=== PATIENT | male | born 1970 | race American Indian/Alaskan Native ===

== ENCOUNTER 2022-03-07 15:10 | Emergency (ER) | payer OTHER ==
--- NOTE | 2022-03-07 15:22 | Emergency Department Report ---
ED General Adult HPI - General Chief complaint: Skin Rash Stated complaint: MULTIPLE BLISTERS Time Seen by Provider: 03/07/22 15:17 Source: patient Mode of arrival: Ambulatory Limitations: No Limitations - History of Present Illness Initial comments: Patient 51-year-old male who presents for vesicular rash to bilateral arms and legs x3 days. He denies history of HSV, asthma eczema or contact dermatitis. Patient states spontaneous eruption primary symptoms are itching and burning 5/10. There is no shortness of breath no dizziness no patient states vesicles are open and draining clear drainage lightheadedness no chest pain no nausea vomiting no fever or chills. Symptoms are exacerbated by itching. Symptoms are relieved by itching. - Related Data Previous Rx's Medication Instructions Recorded Last Taken Type Mupirocin [Bactroban 2% OINT] 1 applic TP TID #1 tube 03/07/22 Unknown Rx Valacyclovir HCl [Valtrex] 1,000 mg PO BID 7 Days #14 tab 03/07/22 Unknown Rx diphenhydrAMINE [Benadryl CAP] 25 mg PO Q8HR PRN #30 capsule 03/07/22 Unknown Rx predniSONE [Deltasone] 40 mg PO QDAY 5 Days #10 tab 03/07/22 Unknown Rx ED Review of Systems ROS: Stated complaint: MULTIPLE BLISTERS Other details as noted in HPI Constitutional: denies: chills, fever Eyes: denies: eye pain, eye discharge, vision change ENT: denies: ear pain, throat pain Respiratory: denies: cough, shortness of breath, wheezing Cardiovascular: denies: chest pain, palpitations Endocrine: no symptoms reported Gastrointestinal: denies: abdominal pain, nausea, diarrhea Genitourinary: denies: urgency, dysuria Musculoskeletal: denies: back pain, joint swelling, arthralgia Skin: denies: rash, lesions Neurological: denies: headache, weakness, paresthesias Psychiatric: denies: anxiety, depression Hematological/Lymphatic: denies: easy bleeding, easy bruising ED Past Medical Hx - Medications Home Medications: Home Medications Medication Instructions Recorded Confirmed Last Taken Type Mupirocin [Bactroban 2% OINT] 1 applic TP TID #1 tube 03/07/22 Unknown Rx Valacyclovir HCl [Valtrex] 1,000 mg PO BID 7 Days #14 tab 03/07/22 Unknown Rx diphenhydrAMINE [Benadryl CAP] 25 mg PO Q8HR PRN #30 capsule 03/07/22 Unknown Rx predniSONE [Deltasone] 40 mg PO QDAY 5 Days #10 tab 03/07/22 Unknown Rx ED Physical Exam - General Limitations: No Limitations General appearance: alert, in no apparent distress - Head Head exam: Present: normocephalic, normal inspection - Eye Eye exam: Present: EOMI Pupils: Present: normal accommodation - ENT ENT exam: Present: mucous membranes moist - Neck Neck exam: Present: normal inspection, full ROM. Absent: tenderness - Respiratory Respiratory exam: Present: normal lung sounds bilaterally. Absent: respiratory distress, wheezes, stridor - Cardiovascular Cardiovascular Exam: Present: regular rate, normal rhythm, normal heart sounds. Absent: systolic murmur, diastolic murmur, rubs, gallop - GI/Abdominal GI/Abdominal exam: Present: soft, normal bowel sounds. Absent: distended, tenderness - Rectal Rectal exam: Present: deferred - Extremities Exam Extremities exam: Present: normal inspection, full ROM, normal capillary refill, other (rash bilat arm leg ) - Back Exam Back exam: Present: normal inspection, full ROM - Neurological Exam Neurological exam: Present: alert, oriented X3 - Psychiatric Psychiatric exam: Present: normal affect, normal mood - Skin Skin exam: Present: warm, rash (Circular bilateral arms and legs clear weeping lower extremities mild erythema) ED Medical Decision Making - Medical Decision Making Plan DC to home with prescriptions., Follow-up with health department given in department without health information packet. Return to emergency department should symptoms worsen. There are no fevers no chills no shortness of breath no cough no wheezing. Rash is likely complicated by 3 days of scratching. There is mild cellulitis versus impetigo. Critical care attestation.: If time is entered above; I have spent that time in minutes in the direct care of this critically ill patient, excluding procedure time. ED Disposition Clinical Impression: Impetigo Contact dermatitis Qualifiers: Contact dermatitis type: irritant Contact dermatitis trigger: unspecified trigger Qualified Code(s): L24.9 - Irritant contact dermatitis, unspecified cause Cellulitis Qualifiers: Site of cellulitis: extremity Site of cellulitis of extremity: lower extremity Laterality: unspecified laterality Qualified Code(s): L03.119 - Cellulitis of unspecified part of limb Disposition: 01 HOME / SELF CARE / HOMELESS Is pt being admited?: No Does the pt Need Aspirin: No Condition: Stable Instructions: Impetigo, Adult, Cellulitis, Adult, [id number] Additional Instructions: Take medication as prescribed follow-up with health department as directed, follow-up with your primary care doctor in 2 to 3 days. Return to emergency department should symptoms worsen Follow up with [facility] make and appointment at [email or web address], phone: [phone] Prescriptions: Mupirocin [Bactroban 2% OINT] 1 applic TP TID #1 tube diphenhydrAMINE [Benadryl CAP] 25 mg PO Q8HR PRN #30 capsule PRN Reason: Itching predniSONE [Deltasone] 40 mg PO QDAY 5 Days #10 tab Valacyclovir HCl [Valtrex] 1,000 mg PO BID 7 Days #14 tab Referrals: [facility] [Provider Group] - 3-5 Days Forms: Work/School Release Form(ED) Time of Disposition: 15:37
[2022-03-07 15:53] VITALS: BP 135/97
== END 2022-03-07 19:30 | disposition home or self-care (01) ==
LOC: ED 15:10
DX: L01.00 Impetigo, unspecified (principal); L25.9 Unspecified contact dermatitis, unspecified cause; L03.90 Cellulitis, unspecified
CPT/HCPCS: 99282